=== PATIENT | male | born 2005 | race African-American/Black ===

== ENCOUNTER 2025-11-18 09:07 | Emergency (ER) | payer OTHER ==
[~2025-11-18] VITALS: Ht 193 cm; Wt 99.4 kg
[2025-11-18 09:11] VITALS: BP 136/84; TEMP 98.3; O2SAT 100
[2025-11-18] MEDS ORDERED: OSEL75CA PO (10:53)
== END 2025-11-18 11:06 | disposition home or self-care (01) ==
LOC: M ED 09:07
DX: J09.X2 Influenza due to identified novel influenza A virus with other respiratory manifestations (principal)